=== PATIENT | male | born 1945 ===

== ENCOUNTER 2017-07-20 08:39 | Inpatient (IN) | payer OTHER ==
[2017-07-06 09:21] VITALS: BMI 25.0
--- NOTE | 2017-07-06 09:52 | PAT Medication Instructions ---
Service Date Jul 06, 2017. Current Home Medication List Aspirin (Aspirin Ec), 0.5 TAB PO QAM Atenolol (Tenormin), 25 MG PO QAM Atorvastatin (Lipitor), 20 MG PO QPM Cholecalciferol (Vitamin D3), 1 TAB PO QAM Ferrous Sulfate (Kp Ferrous Sulfate), 1 TAB PO QPM Finasteride (Proscar), 5 MG PO QPM Ramipril (Altace), 5 MG PO QAM Silodosin (Rapaflo), 1 CAP PO QPM [Insulin Lantus], 35-40 UNITS INJ HS [Novolog], 5-12 UNITS INJ TIDM Medication Instructions For Your Scheduled Surgery -Contact your photographic enlarger operator for instructions: Aspirin (Aspirin Ec), 0.5 TAB PO QAM - Hold the following medications the morning of surgery: Cholecalciferol (Vitamin D3), 1 TAB PO QAM Ramipril (Altace), 5 MG PO QAM [Novolog], 5-12 UNITS INJ TIDM - Take the following medications the morning of surgery with a sip of water: Atenolol (Tenormin), 25 MG PO QAM - Take the following medications as scheduled the night before surgery: Atorvastatin (Lipitor), 20 MG PO QPM Ferrous Sulfate (Kp Ferrous Sulfate), 1 TAB PO QPM Finasteride (Proscar), 5 MG PO QPM Silodosin (Rapaflo), 1 CAP PO QPM [Insulin Lantus], 35-40 UNITS INJ HS [Novolog], 5-12 UNITS INJ TIDM If you have any questions please call us at [phone] or [phone] or [phone]
[2017-07-06 10:48] LABS: BASO % 0.4 %; BASO ABS # 0.04 K/uL (0-0.2); EOS % 0.8 %; EOS ABS # 0.08 K/uL (0-0.5); HEMATOCRIT 38.7 % (42-52); IG# 0.03 K/uL (0.00-0.02); LYMPH % 14.5 %; LYMPH ABS # 1.42 K/uL (1.2-3.4); MEAN CELL VOLUME 86.8 fL (80-100); MEAN CORPUSCULAR HEMOGLOBIN 29.1 pg (25-34); MEAN CORPUSCULAR HGB CONC 33.6 g/dl (32-36); MONO % 6.5 %; MONO ABS # 0.63 K/uL (0.11-0.59); NEUT % 77.5 %; NEUT ABS # 7.56 K/uL (1.4-6.5); PLATELET COUNT 182 K/uL (130-400); RED CELL DISTRIBUTION WIDTH CV 14.7 % (11.5-14.5); RED CELL DISTRIBUTION WIDTH SD 46.3 fL (36.4-46.3); WHITE BLOOD COUNT 9.76 K/uL (4.8-10.8)
[2017-07-06 10:58] LABS: CALCIUM 9.1 mg/dl (8.5-10.1); CREATININE 0.95 mg/dl (0.60-1.40)
--- NOTE | 2017-07-06 11:07 | DIAGNOSTIC IMAGING REPORT ---
CHEST 2 VIEWS ROUTINE CLINICAL HISTORY: Preoperative evaluation. COMPARISON STUDY: No previous studies for comparison. FINDINGS: There are median sternotomy wires and mediastinal surgical clips. Lung volumes are normal. No pneumothorax or pleural effusion is noted. There is no consolidation to suggest pneumonia. Pulmonary vascularity is normal. There is borderline cardiomegaly. IMPRESSION: No acute cardiopulmonary findings. Electronically signed by: Armond Torres M.D. 07/06/2017 11:05 AM Dictated Date/Time: 07/06/2017 11:04 AM
[~2017-07-20] VITALS: Ht 167.6 cm; Wt 69.2 kg
[2017-07-20] VITALS (7 sets, daily range): BP systolic 101–141; BP diastolic 63–70; PULSE 56–85; TEMP 34.7–36.6; O2SAT 98–100; BMI 24.0
[~2017-07-20 08:39] MED LIST: ASPI325T39 PO; ATEN-173 PO; ATOR-22 PO; CHOL1000 PO; CIPROFLOXACIN / D5W 400 MG IV SCH; FERR1TAB13 PO; FINA5TAB PO; INSULIN LANTUS INJ; LACTATED RINGER'S 1000ML 1,000 ML IV SCH; NOVOLOG INJ; RAMI5CAP32 PO; SILO8CAP PO
[2017-07-20] MEDS ORDERED: MIDAZOLAM HCL 1 MG/ML 2ML VIAL ONE (10:01)
[2017-07-20] MEDS ORDERED: EpHEDrine SULFATE 50MG/5ML SYR ONE (10:01)
[2017-07-20] MEDS ORDERED: FENTANYL CITRATE INJ 50 MCG/1 ML 2 ML VIAL ONE (10:01)
[2017-07-20] MEDS ORDERED: ONDANSETRON INJ 2 MG/ML 2 ML VIAL ONE (10:01)
[2017-07-20] MEDS ORDERED: PROPOFOL IV EMULSION 10 MG/ML 20 ML VIAL IV ONE (10:01)
[2017-07-20] MEDS ORDERED: LIDOCAINE HCL 2% 2 ML VIAL (20MG/ML) ONE (10:01)
[2017-07-20] MEDS ORDERED: PHENYLEPHRINE 100MCG/ML 5ML SYR ONE (10:01)
--- NOTE | 2017-07-20 10:47 | History & Physical Bridge Note ---
H&P Re-Evaluation Bridge Note: I have examined the patient, reviewed the History & Physical and in the interval since the performance of the History & Physical I have noted the following changes of clinical significance: No changes noted
[2017-07-20] MEDS ORDERED: HYDROmorphone INJ 1 MG/ML SYR IV PRN (11:15)
[2017-07-20] MEDS ORDERED: ATROPINE SULFATE 0.1 MG/ML 5ML SYR IV PRN (11:15)
[2017-07-20] MEDS ORDERED: FENTANYL CITRATE INJ 50 MCG/1 ML 2 ML VIAL IV PRN (11:15)
[2017-07-20] MEDS ORDERED: ONDANSETRON INJ 2 MG/ML 2 ML VIAL IV PRN ×2 (11:15→15:15)
[2017-07-20] MEDS ORDERED: EpHEDrine SULFATE INJ 50 MG/ML AMP IV PRN (11:15)
[2017-07-20] MEDS ORDERED: GLYCOPYRROLATE INJ 0.2 MG/ML VIAL ONE (11:29)
--- NOTE | 2017-07-20 14:57 | [facility] Post Operative Brief Note ---
Immediate Operative Summary Operative Date Jul 20, 2017. Pre-Operative Diagnosis Benign prostatic hypertrophy with urinary obstruction Post-Operative Diagnosis Benign prostatic hypertrophy with urinary obstruction Procedure(s) Performed Transurethral resection of prostate Surgeon Dr. Renee Alves Body Former Surgeon(s) none Estimated Blood Loss 100cc Findings Consistent with Post-Op Diagnosis massive prostate with significant intravesical component Specimens A: None Per Surgeon Drains 22f 3way catheter Anesthesia Type General Complication(s) none Disposition Accompanied Pt To Recover: yes Disposition: Recovery Room / PACU
[2017-07-20] MEDS ORDERED: PHARMACY GLYCEMIC MGMT CONSULT STA (15:10)
[2017-07-20] MEDS ORDERED: HYDROCODONE/ACETAMIN 5/325MG TAB PO PRN ×2 (15:15)
[2017-07-20] MEDS ORDERED: ACETAMINOPHEN 325 MG TAB PO PRN (15:15)
[2017-07-20] MEDS ORDERED: PHARMACY GLYCEMIC MGMT CONSULT PRN (15:36)
--- NOTE | 2017-07-20 15:36 | [facility] Operative Report ---
Operative Report Operative Date Jul 20, 2017. Pre-Operative Diagnosis Benign prostatic hypertrophy with urinary obstruction Post-Operative Diagnosis Benign prostatic hypertrophy with urinary obstruction Procedure(s) Performed Transurethral resection of prostate Surgeon Dr. Renee Alves Powder Mill Operator Surgeon(s) none Estimated Blood Loss 100cc Findings massive prostate with significant intravesical component Specimens A. prostate chips-permanent Drains 22f 3way catheter Anesthesia Type General Complication(s) none Disposition yes Recovery Room / PACU Indications Severe urinary difficulties Description of Procedure The patient was identified in the preoperative holding area, appropriate informed consents reviewed and completed and he was transported to the operating suite. Upon arrival he received appropriate preoperative antibiotics in the form of ciprofloxacin as well as general anesthesia. He was placed in dorsal lithotomy position and sterilely prepped and draped in standard fashion. To begin the case, I performed a dilation of the ureteral meatus as he was quite stenotic in this area. After dilating to 28 [place], I passed a 27 [place] resectoscope with 30 lens and visual blocking machine operator second. Inspection of the urethra revealed no evidence of abnormalities. Inspection of the prostate revealed significant obstruction from all aspects. He was noted to have severe lateral lobe hypertrophy and elongation of the prostatic urethra as well as a significant intravesical median lobe and intra-vesicle intrusion from the lateral lobes as well. I exchanged the visual obturator for resecting element, initially a button electrode, and I began to resect his intravesical median lobe. I began working from the cleft between the true posterior median lobe in the lateral lobes and work from lateral to medial. I continuously check for evidence of the ureteral orifices, as these were not easily visualized at the beginning of the case. Given the size of the prostate, visualization of the true bladder mucosa was very challenging around the bladder neck. I attempted to use extreme caution throughout to avoid over resecting. After more than 1 hour of working time on the median lobe, I felt that we had adequately resected the bulk of this, and I turned my attention to the left lateral lobe. Beginning anteriorly, I resected from the base to apex and worked gradually more posteriorly. I performed the same procedure on the right lateral lobe. Despite working on these tissues for significant period of time, there still was significant redundant prostate left. I therefore exchanged the button electrode for resecting loop and I performed a repeat resection of all areas. As I progressed with the resection, it became evident that there was more intravesical median lobe than initially appreciated and I was forced to continue resecting this area as well. Gradually , I was able to circumferentially resect the intravesical component and bladder neck adequately and then complete bilateral lobe resections. At the conclusion of my resection, he still had some residual apical tissue as well as moderate lateral lobe tissue, however he had been greatly debulked. We attempted to obtain meticulous hemostasis before exiting with the scope and placing a 22 [place] three-way hematuria catheter and initiating continuous bladder irrigation at a slow rate. The prostate chips were collected and passed off the table as a specimen. He was subsequently extubated and taken to the PACU in stable condition. I attest to the content of the Intraoperative Record and any orders documented therein. Any exceptions are noted below.
[2017-07-20] MEDS ORDERED: DEXTROSE 50% 50 ML SYR IV PRN (15:45)
[2017-07-20] MEDS ORDERED: GLUCAGON FOR INJ 1 MG VIAL SQ PRN (15:45)
[2017-07-20] MEDS ORDERED: GLUCOSE 10 TABS/TUBE PO PRN (15:45)
[2017-07-20] MEDS ORDERED: GLUCOSE 40% GEL 15 GM TUBE PO PRN (15:45)
--- NOTE | 2017-07-20 15:50 | Anesthesiology Progress Note ---
Anesthesia Post Op Note Date & Time Jul 20, 2017 at 15:49 Vital Signs Pain Intensity: 3 Vital Signs Past 12 Hours Date Time Temp Pulse Resp B/P (MAP) Pulse Ox O2 Delivery O2 Flow Rate FiO2 07/20/17 15:40 36.0 80 22 109/61 100 Nasal Cannula 2 07/20/17 15:30 78 14 108/63 100 Nasal Cannula 2 07/20/17 15:22 105/56 (67) 07/20/17 15:20 80 16 85/44 (50) 100 Oxymask 10 07/20/17 15:10 83 17 106/52 100 Oxymask 10 07/20/17 15:00 36.2 75 19 97/49 (65) 100 Oxymask 10 07/20/17 09:15 36.6 56 18 141/66 (91) 100 Room Air Notes Mental Status: alert / awake / arousable, participated in evaluation Pt Amnestic to Procedure: Yes Nausea / Vomiting: adequately controlled Pain: adequately controlled Airway Patency, RR, SpO2: stable & adequate BP & HR: stable & adequate Hydration State: stable & adequate Anesthetic Complications: no major complications apparent
[2017-07-20 15:56] LABS: HEMATOCRIT 36.4 % (42-52); HEMOGLOBIN 12.2 g/dL (14.0-18.0); MEAN CORPUSCULAR HEMOGLOBIN 28.5 pg (25-34); MEAN PLATELET VOLUME 10.5 fL (7.4-10.4); PLATELET COUNT 111 K/uL (130-400); RED CELL DISTRIBUTION WIDTH CV 14.7 % (11.5-14.5); RED CELL DISTRIBUTION WIDTH SD 45.8 fL (36.4-46.3); WHITE BLOOD COUNT 7.77 K/uL (4.8-10.8)
[2017-07-20 16:01] LABS: MEAN CORPUSCULAR HGB CONC 33.5 g/dl (32-36)
[2017-07-20 16:15] LABS: CALCIUM 8.1 mg/dl (8.5-10.1); CREATININE 0.79 mg/dl (0.60-1.40); POTASSIUM 4.4 mmol/L (3.5-5.1)
[2017-07-20] MEDS ORDERED: IV FLUIDS COMPLETED PRN (16:30)
[2017-07-20] MEDS: LACTATED RINGER'S 1000ML 1,000 ML IV SCH (18:03)
[2017-07-20] MEDS: INSULIN ASPART 100 UNITS/ML 3 ML PEN SC SCH ×2 (19:24→21:10)
[2017-07-20] MEDS: ATORVASTATIN 20 MG TAB PO SCH (20:59)
[2017-07-20] MEDS ORDERED: INSULIN GLARGINE SOLOSTAR 100 UNITS/ML 3 ML PEN SC SCH (21:00)
[2017-07-20] MEDS: FINASTERIDE 5 MG TAB PO SCH (21:00)
--- NOTE | 2017-07-20 21:54 | Pharmacy Progress Note ---
Glycemic Control Intl Consult Date of Service Jul 20, 2017. Scope Glycemic Pharmacist consulted by Dr Alves on 07/20/17 for glycemic control and to write orders per [facility] inpatient glycemic control protocol Objective Weight (Kilograms): 69.20 Accuchecks BSG (last 24hrs): Test 07/20/17 09:21 07/20/17 15:08 07/20/17 15:45 07/20/17 17:43 Bedside Glucose 108 mg/dl (70-99) 146 mg/dl (70-99) 165 mg/dl (70-99) Random Glucose 155 mg/dl (70-99) Test 07/20/17 20:38 Bedside Glucose 232 mg/dl (70-99) Laboratory Data (last 24hrs) Test 07/20/17 15:45 Anion Gap 7.0 mmol/L BUN/Creatinine Ratio 21.3 Blood Urea Nitrogen 17 mg/dl Creatinine 0.79 mg/dl Potassium Level 4.4 mmol/L Sodium Level 137 mmol/L White Blood Count 7.77 K/uL Red Blood Count 4.28 M/uL Hemoglobin 12.2 g/dL Hematocrit 36.4 % Mean Corpuscular Volume 85.0 fL Mean Corpuscular Hemoglobin 28.5 pg Mean Corpuscular Hemoglobin Concent 33.5 g/dl Platelet Count 111 K/uL Mean Platelet Volume 10.5 fL HbA1c unknown Recent Pertinent Medications Outpatient Anti-diabetic Regimen: * Lantus 35 units SQ HS * NovoLog 5-12 units SQ TIDM Risk Factors for Insulin Resistance: * Recent Surgery * Diet Assessment & Plan ASSESSMENT: * 72yo T2DM male with unknown degree of outpatient control. Will order A1c with AM labs tomorrow AM * Pt is maintained on SQ basal bolus insulin regimen as an outpatient. Outpatient doses are "range dosing" depending on BSG/meal size. * Will continue outpatient doses but start at lower end since most likely PO intake in house will be less than outpatient * Goal is to maintain BSG <200 mg/dl (ideally <150 mg/dl) to prevent post op infectious complications * Will titrate insulin doses daily based on BSG trends PLAN FOR INPATIENT GLYCEMIC CONTROL: * Basal insulin * Lantus 35 units SQ HS * Bolus insulin * NovoLog per scale ACHS or Q6hrs while NPO * Goal Range: Low 110 mg/dL - High 140 mg/dL * Correction Factor: 25 mg/dL/unit * Nutritional / Prandial insulin per carb ratio of 1 unit per 8 grams CHO consumed * Please note that the plan above was derived based on current level of insulin resistance and hospital stress. These recommendations are appropriate for inpatient admission only. Plan of care upon discharge will need to be reassessed to avoid potential outpatient hypo/hyperglycemia. Thank you.
[2017-07-21] MEDS: LACTATED RINGER'S 1000ML 1,000 ML IV SCH ×4 (00:12→21:18)
[2017-07-21 03:33] VITALS: BP 108/52; PULSE 70; TEMP 36.6; O2SAT 98
[2017-07-21 07:41] LABS: BASO % 0.5 %; BASO ABS # 0.04 K/uL (0-0.2); EOS % 0.4 %; EOS ABS # 0.03 K/uL (0-0.5); HEMATOCRIT 32.7 % (42-52); HEMOGLOBIN 10.8 g/dL (14.0-18.0); IG# 0.02 K/uL (0.00-0.02); LYMPH % 26.2 %; LYMPH ABS # 1.96 K/uL (1.2-3.4); MEAN CELL VOLUME 84.9 fL (80-100); MEAN CORPUSCULAR HEMOGLOBIN 28.1 pg (25-34); MEAN PLATELET VOLUME 10.8 fL (7.4-10.4); MONO % 8.4 %; MONO ABS # 0.63 K/uL (0.11-0.59); NEUT % 64.2 %; NEUT ABS # 4.81 K/uL (1.4-6.5); PLATELET COUNT 113 K/uL (130-400); RED CELL DISTRIBUTION WIDTH CV 14.7 % (11.5-14.5); RED CELL DISTRIBUTION WIDTH SD 45.9 fL (36.4-46.3); WHITE BLOOD COUNT 7.49 K/uL (4.8-10.8)
[2017-07-21 07:50] VITALS: BP 148/64; PULSE 68; TEMP 36.7; O2SAT 98
[2017-07-21] MEDS: INSULIN ASPART 100 UNITS/ML 3 ML PEN SC SCH ×4 (08:00→21:28)
[2017-07-21 08:12] LABS: HEMOGLOBIN A1C 7.2 % (4.5-5.6)
[2017-07-21 08:19] LABS: CALCIUM 8.2 mg/dl (8.5-10.1); CREATININE 0.89 mg/dl (0.60-1.40); POTASSIUM 4.9 mmol/L (3.5-5.1)
[2017-07-21] MEDS: ENALAPRIL MALEATE 10 MG TAB PO SCH (08:30)
[2017-07-21] MEDS: ASPIRIN 81 MG ECTAB PO SCH (09:00)
--- NOTE | 2017-07-21 10:37 | Progress Note ---
Subjective Date of Service: Jul 21, 2017. Subjective Pt evaluation today including: conversation w/ patient, conversation w/ family , physical exam, chart review, lab review Voiding: jeffries catheter in place No major issues overnight CBI ran at a slow rate without problem Reports he is feeling well today Ambulating, no pain Review of Systems Constitutional: No see HPI, No fever, No chills, No sweats, No weight loss, No weakness, No fatigue, No problem reported Eyes: No see HPI, No worsening of vision, No eye pain, No redness, No discharge , No diplopia, No problem reported Abdomen: No see HPI, No pain, No nausea, No vomiting, No diarrhea, No constipation, No GI bleeding, No problem reported Objective Vital Signs Date Time Temp Pulse Resp B/P (MAP) Pulse Ox O2 Delivery O2 Flow Rate FiO2 07/21/17 07:50 36.7 68 16 148/64 (92) 98 Room Air 07/21/17 07:16 Room Air 07/21/17 03:33 36.6 70 17 108/52 (70) 98 Room Air 07/20/17 23:51 Room Air 07/20/17 22:53 36.6 85 17 132/70 (90) 98 Room Air 07/20/17 20:20 36.4 72 18 118/69 (85) 100 Room Air 07/20/17 18:28 34.7 80 16 105/64 (78) 100 Nasal Cannula 2.0 07/20/17 18:00 100 Room Air 07/20/17 17:45 36.3 80 18 111/67 (82) 100 Nasal Cannula 2.0 07/20/17 17:15 36.4 73 18 101/63 (76) 100 Nasal Cannula 2.0 07/20/17 17:15 100 Nasal Cannula 2.0 07/20/17 17:00 72 15 110/57 100 Nasal Cannula 2 07/20/17 16:45 74 17 114/59 100 Nasal Cannula 2 07/20/17 16:30 36.2 72 12 98/63 (73) 100 Nasal Cannula 2 07/20/17 16:15 76 12 116/58 100 Nasal Cannula 2 07/20/17 16:00 77 14 112/61 100 Nasal Cannula 2 07/20/17 15:50 80 22 106/54 100 Nasal Cannula 2 3/26/18 15:40 36.0 80 22 109/61 100 Nasal Cannula 2 07/20/17 15:30 78 14 108/63 100 Nasal Cannula 2 07/20/17 15:22 105/56 (67) 07/20/17 15:20 80 16 85/44 (50) 100 Oxymask 10 07/20/17 15:10 83 17 106/52 100 Oxymask 10 07/20/17 15:00 36.2 75 19 97/49 (65) 100 Oxymask 10 Physical Exam General Appearance: no apparent distress Eyes: normal inspection ENT: hearing grossly normal Neck: no adenopathy Respiratory/Chest: no respiratory distress Cardiovascular: + pertinent finding (Urine cranberry on very slow CBI, clears immediately when increasing the rate of flow) Extremities: non-tender Neurologic/Psychiatric: alert, normal mood/affect, oriented x 3 Laboratory Results Last 24 Hours Test 07/20/17 15:08 07/20/17 15:45 07/20/17 17:43 07/20/17 20:38 Bedside Glucose 146 mg/dl 165 mg/dl 232 mg/dl White Blood Count 7.77 K/uL Red Blood Count 4.28 M/uL Hemoglobin 12.2 g/dL Hematocrit 36.4 % Mean Corpuscular Volume 85.0 fL Mean Corpuscular Hemoglobin 28.5 pg Mean Corpuscular Hemoglobin Concent 33.5 g/dl Platelet Count 111 K/uL Mean Platelet Volume 10.5 fL RDW Standard Deviation 45.8 fL RDW Coefficient of Variation 14.7 % Neutrophils % (Manual) 56.7 % Lymphocytes % (Manual) 21.2 % Variant Lymphocytes % (manual) 15.0 % Monocytes % (Manual) 4.4 % Eosinophils % (Manual) 0.9 % Basophils % (Manual) 1.8 % Neutrophils # (Manual) 4.41 K/uL Total Absolute Neutrophils 4.41 K/uL Lymphocytes # (Manual) 1.65 K/uL Absolute Variant Lymphocytes 1.17 K/uL Total Absolute Lymphocytes 2.81 K/uL Monocytes # (Manual) 0.34 K/uL Eosinophils # (Manual) 0.07 K/uL Basophils # (Manual) 0.14 K/uL Red Blood Cell Morphology Unremarkable Sodium Level 137 mmol/L Potassium Level 4.4 mmol/L Chloride Level 105 mmol/L Carbon Dioxide Level 25 mmol/L Anion Gap 7.0 mmol/L Blood Urea Nitrogen 17 mg/dl Creatinine 0.79 mg/dl Est Creatinine Clear Calc Drug Dose 75.1 ml/min Estimated GFR () 103.2 Estimated GFR (Non- 89.1 BUN/Creatinine Ratio 21.3 Random Glucose 155 mg/dl Calcium Level 8.1 mg/dl Test 07/21/17 06:51 07/21/17 08:33 White Blood Count 7.49 K/uL Red Blood Count 3.85 M/uL Hemoglobin 10.8 g/dL Hematocrit 32.7 % Mean Corpuscular Volume 84.9 fL Mean Corpuscular Hemoglobin 28.1 pg Mean Corpuscular Hemoglobin Concent 33.0 g/dl Platelet Count 113 K/uL Mean Platelet Volume 10.8 fL Neutrophils (%) (Auto) 64.2 % Lymphocytes (%) (Auto) 26.2 % Monocytes (%) (Auto) 8.4 % Eosinophils (%) (Auto) 0.4 % Basophils (%) (Auto) 0.5 % Neutrophils # (Auto) 4.81 K/uL Lymphocytes # (Auto) 1.96 K/uL Monocytes # (Auto) 0.63 K/uL Eosinophils # (Auto) 0.03 K/uL Basophils # (Auto) 0.04 K/uL RDW Standard Deviation 45.9 fL RDW Coefficient of Variation 14.7 % Immature Granulocyte % (Auto) 0.3 % Immature Granulocyte # (Auto) 0.02 K/uL Sodium Level 136 mmol/L Potassium Level 4.9 mmol/L Chloride Level 103 mmol/L Carbon Dioxide Level 30 mmol/L Anion Gap 3.0 mmol/L Blood Urea Nitrogen 14 mg/dl Creatinine 0.89 mg/dl Est Creatinine Clear Calc Drug Dose 66.7 ml/min Estimated GFR () 98.3 Estimated GFR (Non- 84.8 BUN/Creatinine Ratio 16.1 Random Glucose 167 mg/dl Estimated Average Glucose 160 mg/dl Hemoglobin A1c 7.2 % Calcium Level 8.2 mg/dl Bedside Glucose 169 mg/dl Assessment and Plan Postop day #1 status post extremely large TURP Clamp CBI now If relatively clear in 2 hours, voiding trial If still bloody, consider continuing CBI for an additional 24 hours and voiding trial tomorrow
[2017-07-21] MEDS ORDERED: NITROFURANTOIN MONOHYDRATE 100 MG CAP PO ONE (11:36)
--- NOTE | 2017-07-21 12:11 | Progress Note ---
Progress Note Date of Service Jul 21, 2017. Progress Note Pt seen this afternoon. Continues to have bright [place] colored urine with CBI clamped. Pt reports he feels well. Pt states he was planning to stay in [place] overnight at a hotel if he was discharged rather than to go back to [facility]. Will plan to keep him inpatient and restart a slow CBI overnight. If hematuria improved in the morning, hopeful for TOV and d/c home. Will also restart his Macrobid as he was on this abx pre-op for E coli UTI.
[2017-07-21 12:25] VITALS: BP 97/48; PULSE 65; TEMP 36.7; O2SAT 98
--- NOTE | 2017-07-21 12:58 | Pharmacy Progress Note ---
Pharmacy Glycemic Short Note 2 Date of Service Jul 21, 2017. OUTPATIENT ANTIDIABETIC REGIMEN: * lantus 35-40 units SQ qPM plus Novolog 5-12 units TIDM ASSESSMENT: * Mr Aguilar is a 72 y/o M with a PMH of BPH and reasonably well controlled type 2 diabetes. He is post-op day 1 for a TURP procedure. Yesterday, the patient's blood sugar was 108 mg/dL prior to surgery then 146-232 mg/dL. The patient's fasting blood sugar today is 167 mg/dL. * For Lantus, the patient was started at the lower end of his typical range. The range recorded in the outpatient medications was wrong. The patient takes Lantus 24 units at bedtime. He received that last night. The fasting blood sugar this morning was still elevated though so provided a range for the evening of patient's home dose plus a dose increased by 15%. * For Novolog, it appears that the patient trended upwards yesterday. He is already tolerating weight-baed stress of 3 Novolog; tightened Novolog carbohydrate ratio and correction factor slightly. PLAN FOR INPATIENT GLYCEMIC CONTROL: * Basal insulin * Lantus 24 units SQ HS (28 units SQ HS if blood sugar greater than 180 mg/dL) * Bolus insulin tightened * NovoLog per scale ACHS or Q6hrs while NPO * Goal Range: Low 110 mg/dL - High 140 mg/dL * Correction Factor: 20 mg/dL/unit * Nutritional / Prandial insulin per carb ratio of 1 unit per 6 grams CHO consumed PLAN FOR DISCHARGE: * For the patient's age, his HbA1C is well controlled. Can continue home regimen as long as he does not suffer from hypoglycemia.
[2017-07-21 13:11] VITALS: Ht 167.6 cm; Wt 69.2 kg
[2017-07-21 15:35] VITALS: BP 155/77; PULSE 68; TEMP 37.1; O2SAT 98
[2017-07-21] MEDS ORDERED: INSULIN GLARGINE SOLOSTAR 100 UNITS/ML 3 ML PEN SC SCH ×3 (21:00)
[2017-07-21] MEDS: NITROFURANTOIN MONOHYDRATE 100 MG CAP PO SCH (21:19)
[2017-07-21] MEDS: ATORVASTATIN 20 MG TAB PO SCH (21:19)
[2017-07-21] MEDS: FINASTERIDE 5 MG TAB PO SCH (21:19)
[2017-07-21 23:38] VITALS: BP 139/55; PULSE 73; TEMP 37.1; O2SAT 98
[2017-07-22] MEDS: LACTATED RINGER'S 1000ML 1,000 ML IV SCH ×2 (03:02→10:55)
[2017-07-22 06:49] LABS: HEMOGLOBIN 10.3 g/dL (14.0-18.0); MEAN CELL VOLUME 84.9 fL (80-100); MEAN CORPUSCULAR HEMOGLOBIN 28.2 pg (25-34); MEAN CORPUSCULAR HGB CONC 33.2 g/dl (32-36); MEAN PLATELET VOLUME 10.5 fL (7.4-10.4); PLATELET COUNT 123 K/uL (130-400); RED CELL DISTRIBUTION WIDTH CV 14.8 % (11.5-14.5); RED CELL DISTRIBUTION WIDTH SD 46.1 fL (36.4-46.3); WHITE BLOOD COUNT 7.83 K/uL (4.8-10.8)
[2017-07-22 07:35] LABS: CALCIUM 8.7 mg/dl (8.5-10.1); CREATININE 0.77 mg/dl (0.60-1.40); POTASSIUM 4.1 mmol/L (3.5-5.1)
[2017-07-22] MEDS: INSULIN ASPART 100 UNITS/ML 3 ML PEN SC SCH ×2 (08:00→13:20)
[2017-07-22 08:04] VITALS: BP 112/56; PULSE 70; TEMP 37; O2SAT 98
--- NOTE | 2017-07-22 08:27 | Progress Note ---
Subjective Date of Service: Jul 22, 2017. Subjective Pt evaluation today including: conversation w/ patient, conversation w/ family , physical exam, lab review Voiding: jeffries catheter in place no major issues overnight - slow CBI - urine has continued to clear - subjectively feeling well Review of Systems Constitutional: No see HPI, No fever, No chills, No sweats, No weight loss, No weakness, No fatigue, No problem reported Abdomen: No see HPI, No pain, No nausea, No vomiting, No diarrhea, No constipation, No GI bleeding, No problem reported Musculoskeletal: No see HPI, No joint pain, No muscle pain, No swelling, No calf pain, No problem reported Objective Vital Signs Date Time Temp Pulse Resp B/P (MAP) Pulse Ox O2 Delivery O2 Flow Rate FiO2 07/22/17 08:04 37.0 70 18 112/56 (74) 98 Room Air 07/22/17 07:14 Room Air 07/21/17 23:48 Room Air 07/21/17 23:38 37.1 73 18 139/55 (83) 98 Room Air 07/21/17 16:00 Room Air 07/21/17 15:35 37.1 68 18 155/77 (103) 98 Room Air 07/21/17 12:25 36.7 65 15 97/48 (64) 98 Room Air Physical Exam General Appearance: no apparent distress Eyes: normal inspection ENT: hearing grossly normal Neck: no adenopathy Respiratory/Chest: no respiratory distress, no accessory muscle use Cardiovascular: no edema Abdomen: non tender, soft Extremities: non-tender, no pedal edema Neurologic/Psychiatric: alert, normal mood/affect, oriented x 3 Laboratory Results Last 24 Hours Test 07/21/17 08:33 07/21/17 12:08 07/21/17 17:28 07/21/17 20:10 Bedside Glucose 169 mg/dl 236 mg/dl 194 mg/dl 210 mg/dl Test 07/22/17 06:20 White Blood Count 7.83 K/uL Red Blood Count 3.65 M/uL Hemoglobin 10.3 g/dL Hematocrit 31.0 % Mean Corpuscular Volume 84.9 fL Mean Corpuscular Hemoglobin 28.2 pg Mean Corpuscular Hemoglobin Concent 33.2 g/dl RDW Standard Deviation 46.1 fL RDW Coefficient of Variation 14.8 % Platelet Count 123 K/uL Mean Platelet Volume 10.5 fL Sodium Level 139 mmol/L Potassium Level 4.1 mmol/L Chloride Level 105 mmol/L Carbon Dioxide Level 30 mmol/L Anion Gap 4.0 mmol/L Blood Urea Nitrogen 15 mg/dl Creatinine 0.77 mg/dl Est Creatinine Clear Calc Drug Dose 77.1 ml/min Estimated GFR () 104.3 Estimated GFR (Non- 90.0 BUN/Creatinine Ratio 18.9 Random Glucose 66 mg/dl Calcium Level 8.7 mg/dl Assessment and Plan Postop day #2 status post extremely large TURP PLan for voiding trial this AM - assuming he does well, plan for d/c home later today
[2017-07-22] MEDS: ASPIRIN 81 MG ECTAB PO SCH (09:00)
[2017-07-22] MEDS: NITROFURANTOIN MONOHYDRATE 100 MG CAP PO SCH (09:04)
[2017-07-22] MEDS: ENALAPRIL MALEATE 10 MG TAB PO SCH (09:04)
[2017-07-22 09:15] VITALS: BP 123/55; PULSE 74
[2017-07-22] MEDS ORDERED: PHEN-876 PO (10:53)
[2017-07-22] MEDS ORDERED: HYDR-5688 PO (10:53)
--- NOTE | 2017-07-22 10:57 | Discharge Instructions ---
Discharge Instructions Date of Service Jul 22, 2017. Admission Reason for Admission: Urinary Retention Due Benign Prostatic Hyperplasia Discharge Discharge Diagnosis / Problem: Benign prostatic hyperplasia with urinary retention Discharge Goals Goal(s): Decrease discomfort, Improve disease control, Therapeutic intervention Activity Recommendations Activity Limitations: as noted below Lifting Limitations: no more than 25 pounds (x 2 weeks ) Exercise/Sports Limitations: rest today, gradually increase as tolerated ( Light activity x 2 weeks ) May Resume Sexual Activity: after follow-up appointment Shower/Bathe: no limitations Driving or Machine Use: resume 3 days after discharge (Do not drive while taking narcotics. ) . Instructions / Follow-Up Instructions / Follow-Up 1. You may resume taking Aspirin when urine is clear. 2. Follow-up with Dr. Alves as scheduled. Please call our office at if you need to reschedule for any reason. Current Hospital Diet Patient's current hospital diet: Diabetes Type 2 Diet Discharge Diet Recommended Diet: Diabetes Type 2 Diet Procedures Procedures Performed: Transurethral resection of prostate Pending Studies Studies pending at discharge: yes List of pending studies: prostate tissue Laboratory Results Hemoglobin A1c Test 07/21/17 06:51 Range/Units Estimated Average Glucose 160 mg/dl Hemoglobin A1c 7.2 H 4.5-5.6 % Medical Emergencies . Who to Call and When: Medical Emergencies: If at any time you feel your situation is an emergency, please call 911 immediately. . Non-Emergent Contact Non-Emergency issues call your: Urologist Call Non-Emergent contact if: temperature is above 101.5, your pain is not controlled, your pain is worsening, your pain is unusual for you, your pain is concerning you, you have any medication questions . . "Provider Documentation" section prepared by Brenna Presley. . [place] Drug Monitoring Program Search Results: patient reviewed within database, no issues identified
[2017-07-22 11:24] VITALS: O2SAT 98
[2017-07-22 11:30] VITALS: BP 123/55; PULSE 74; TEMP 37; O2SAT 98
[2017-07-22] MEDS ORDERED: INSULIN GLARGINE SOLOSTAR 100 UNITS/ML 3 ML PEN SC SCH (21:00)
--- NOTE | 2017-07-23 17:32 | Discharge Summary ---
Discharge Summary Date of Service Jul 23, 2017. Admission Date/Reason Jul 22, 2017 at 08:28 Urinary Retention Due Benign Prostatic Hyperplasia. Discharge Date/Disposition Jul 22, 2017 Home Diagnosis Principal Diagnosis: BPH; urinary retention Medication Reconciliation New Medications: Phenazopyridine HCl (Pyridium) 200 Mg Tab 200 MG PO TID for Bladder pain, #15 TAB Hydrocodone/Acetaminophen 5MG/325MG ([place] 5MG/325MG) Tab 1 TAB PO Q4H PRN for moderate pain (pain scale 4-6), #10 TAB 0 Refills PRN PAIN Continued Medications: Atenolol (Tenormin) 25 Mg Tab 25 MG PO QAM, TAB Atorvastatin (Lipitor) 20 Mg Tab 20 MG PO QPM, TAB Cholecalciferol (Vitamin D3) 1,000 Unit Tab 1 TAB PO QAM for 90 Days, #90 TAB 3 Refills Ferrous Sulfate (Kp Ferrous Sulfate) 325 Mg Tab 1 TAB PO QPM for 30 Days, TAB 3 Refills Ramipril (Altace) 5 Mg Cap 5 MG PO QAM, CAP [Insulin Lantus] () 35-40 UNITS INJ HS [Novolog] () 5-12 UNITS INJ TIDM SLIDING SCALE Discontinued Medications: Aspirin (Aspirin Ec) 325 Mg Tab 0.5 TAB PO QAM Finasteride (Proscar) 5 Mg Tab 5 MG PO QPM, TAB Silodosin (Rapaflo) 8 Mg Cap 1 CAP PO QPM for 90 Days, CAP 3 Refills Admission Physical Exam As per Admitting History & Physical. Hospital Course The patient was admitted for a TURP, details of this procedure as dictated previously in the operative report. In summary, however, he had a very large prostate which led to a prolonged TURP. He tolerated this procedure extremely well and was transferred to the floor with continuous bladder irrigation running. There were no issues overnight, and I attempted to clamp the CBI in the morning of postoperative day 1. His urine was not particularly bloody, however given the size of his TURP and is overall feeling, I elected to resume CBI for 1 additional day and keep him in-house until postoperative day 2. On the morning of postoperative day 2, his urine was relatively clear even with CBI on a slow rate, and I decided to remove his catheter. Passed his voiding trial was subsequently discharged home in stable condition. Discharge Instructions Please refer to the electronic Patient Visit Report (Discharge Instructions) for additional information.
== END 2017-07-22 13:30 | disposition home or self-care (01) | DRG 713 ==
LOC: C.ACU 08:39 → C.MSW 15:19 → ENRESERV 16:59 → OBSVTOIN 07-22 08:28
PROVIDERS: ADMIT Urology; ATTEND Urology
PROC: 0T7D7ZZ Dilation of Urethra, Via Natural or Artificial Opening (ICD-10-PCS; principal; 2017-07-20 10:40)
PROC: 0TBC8ZZ Excision of Bladder Neck, Via Natural or Artificial Opening Endoscopic (ICD-10-PCS; principal; 2017-07-20 10:40)
PROC: 0VT08ZZ Resection of Prostate, Via Natural or Artificial Opening Endoscopic (ICD-10-PCS; principal; 2017-07-20 10:40)
DX: N40.1 Benign prostatic hyperplasia with lower urinary tract symptoms (principal); N13.8 Other obstructive and reflux uropathy; Q64.33 Congenital stricture of urinary meatus; R33.8 Other retention of urine; R31.0 Gross hematuria; E11.9 Type 2 diabetes mellitus without complications; I25.2 Old myocardial infarction; Z79.899 Other long term (current) drug therapy; Z79.4 Long term (current) use of insulin; Z79.82 Long term (current) use of aspirin; Z87.440 Personal history of urinary (tract) infections; Z83.3 Family history of diabetes mellitus; Z82.49 Family history of ischemic heart disease and other diseases of the circulatory system